=== PATIENT | male | born 1950 | race Caucasian/White ===

== ENCOUNTER 2019-06-16 06:15 | Emergency (ER) | payer MEDICARE, OTHER ==
[~2019-06-16] VITALS: Ht 182.9 cm; Wt 118.2 kg
[2019-06-16] MEDS ORDERED: ketorolac tromethamine 15mg/ml inj. IV ONE (06:35)
[2019-06-16] MEDS ORDERED: normal saline 1000ML IV soln IVB ONE ×2 (06:35→06:55)
[2019-06-16] MEDS ORDERED: morphine 4 MG/ML inj SYRINge IV ONE (06:55)
[2019-06-16] MEDS ORDERED: ondansetron/PF 4mg/2ml inj IV ONE (06:55)
[2019-06-16 07:11] LABS: BASOPHILS # (AUTO) 0.1 X10'3 (0-0.2); BASOPHILS % (AUTO) 0.9 % (0-1); EOSINOPHILS # (AUTO) 0.2 X10'3 (0-0.9); EOSINOPHILS % (AUTO) 1.6 % (0-6); HEMATOCRIT 43.5 % (42.0-52.0); LYMPHOCYTES # (AUTO) 2.1 X10'3 (1.1-4.8); LYMPHOCYTES % (AUTO) 20.6 % (21-51); MEAN CORPUSCULAR HEMOGLOBIN 30.1 PG (27.0-31.0); MEAN CORPUSCULAR HGB CONC 34.5 g/dL (33.0-36.5); MEAN CORPUSCULAR VOLUME 87.2 FL (78-98); MEAN PLATELET VOLUME 8.6 FL (7.4-10.4); MONOCYTES # (AUTO) 0.6 X10'3 (0-0.9); MONOCYTES % (AUTO) 6.3 % (2-12); NEUTROPHILS # (AUTO) 7.1 X10'3 (1.8-7.7); NEUTROPHILS % (AUTO) 70.6 % (42-75); PLATELET COUNT 222 X10'3 (140-440); RED BLOOD COUNT 4.99 X10'6 (4.70-6.10); RED CELL DISTRIBUTION WIDTH 14.1 % (11.5-14.5)
[2019-06-16 07:13] LABS: ALANINE AMINOTRANSFERASE 33 U/L (12-78); ALBUMIN 3.9 G/DL (3.4-5.0); ALBUMIN/GLOBULIN RATIO 1.1 (1.1-1.5); ALKALINE PHOSPHATASE 125 IU/L (46-116); ANION GAP 16 (8-16); ASPARTATE AMINO TRANSFERASE 20 U/L (10-37); BILIRUBIN,TOTAL 0.8 MG/DL (0.1-1.0); BLOOD UREA NITROGEN 24 MG/DL (7-18); BUN/CREATININE RATIO 17.4 (5.4-32.0); CALCIUM 9.2 MG/DL (8.5-10.1); CHLORIDE 108 MMOL/L (99-107); CREATININE 1.38 MG/DL (0.60-1.10); GLUCOSE 197 MG/DL (70-104); LIPASE 195 U/L (73-393); POTASSIUM 4.4 MMOL/L (3.5-5.1); SODIUM 140 MMOL/L (135-145); TOTAL PROTEIN 7.6 G/DL (6.4-8.2); eGFR 51 ML/MIN
--- NOTE | 2019-06-16 08:20 | NUR ---
PATIENT HAS BEEN INFORMED SEVERAL TIMES OF NEED FOR URINALYSIS SPECIMEN. PATIENT STATES HE IS UNABLE TO VOID AT THIS TIME. IV FLUIDS IN PROGRESS AND CUP OF WATER GIVEN TO PATIENT.
[2019-06-16 09:13] LABS: CLARITY,URINE CLEAR (Clear); COLOR,URINE YELLOW (Yellow); GLUCOSE, URINE NEGATIVE (Neg); KETONES,URINE 15 mg/dl (Neg); LEUKOCYTE ESTERASE ,URINE NEGATIVE (Neg); NITRITES, URINE NEGATIVE (Neg); OCCULT BLOOD,URINE MODERATE (Neg); PROTEIN,URINE NEGATIVE (Neg); UROBILINOGEN,URINE 0.2 E.U/dL (0.2-1.0)
[2019-06-16 09:14] LABS: UA COLLECTION TYPE URINAL
[2019-06-16 09:24] LABS: SQUAMOUS EPITHELIAL CELL,UR MODERATE /LPF (FEW)
[2019-06-16 09:26] LABS: RBC,URINE 20-50 /HPF (0-2); URIC ACID CRYSTALS 4+ /HPF (NEGATIVE)
[2019-06-16 09:27] LABS: BACTERIA,URINE FEW /HPF (Neg)
[2019-06-16 09:28] LABS: TRANSITIONAL EPI CELLS,URINE FEW /HPF; WBC,URINE 0-4 /HPF (0-4)
[2019-06-16] MEDS ORDERED: morphine 4 MG/ML inj SYRINge IM ONE (10:40)
[2019-06-16] MEDS ORDERED: tamsulosin 0.4mg capsule PO ONE (10:40)
[2019-06-16] MEDS ORDERED: FLO0.4C PO (10:46)
[2019-06-16] MEDS ORDERED: ONDA8TAB13 PO (10:46)
[2019-06-16] MEDS ORDERED: HYDR-4353 PO (10:46)
--- NOTE | 2019-06-16 11:20 | NUR ---
PATIENT WILL BE DC HOME IN 30 MINUTES, AFTER RECEIVING PAIN MEDICATION. SON, ANGELIA, CALLED ON CELL AT [phone], AND INFORMED THAT HIS FATHER WILL BE DC IN APPROX 30 MINUTES, AND REQUIRE TRANSPORTATION HOME. SON IS ON HIS WAY HERE.
[2019-06-16 12:17] VITALS: BP 156/44
== END 2019-06-16 12:10 | disposition home or self-care (01) ==
LOC: ER 06:17
DX: N20.0 Calculus of kidney (principal); R11.10 Vomiting, unspecified; E11.9 Type 2 diabetes mellitus without complications; Z87.891 Personal history of nicotine dependence; Z79.899 Other long term (current) drug therapy
CPT/HCPCS: 36415; 74176; 80053; 81001; 83690; 85025; 96361; 96372; 96374; 96375; 99284; J1885; J2270; J2405; J7030

== ENCOUNTER 2021-06-11 09:13 | Inpatient (IN) | payer OTHER, MEDICARE ==
[~2021-06-11] VITALS: Ht 182.9 cm; Wt 118.2 kg
[~2021-06-11 09:13] MED LIST: ONDA8TAB13 PO
[2021-06-11 11:18] LABS: BASOPHILS # (AUTO) 0.1 X10'3 (0-0.2); BASOPHILS % (AUTO) 0.9 % (0-1); EOSINOPHILS # (AUTO) 0.2 X10'3 (0-0.9); EOSINOPHILS % (AUTO) 3.3 % (0-6); HEMATOCRIT 43.6 % (42.0-52.0); HEMOGLOBIN 14.7 g/dl (14.0-17.9); LYMPHOCYTES # (AUTO) 1.9 X10'3 (1.1-4.8); LYMPHOCYTES % (AUTO) 27.6 % (21-51); MEAN CORPUSCULAR HEMOGLOBIN 29.7 PG (27.0-31.0); MEAN CORPUSCULAR HGB CONC 33.7 g/dL (33.0-36.5); MEAN PLATELET VOLUME 8.1 FL (7.4-10.4); MONOCYTES # (AUTO) 0.7 X10'3 (0-0.9); MONOCYTES % (AUTO) 10.8 % (2-12); NEUTROPHILS # (AUTO) 3.9 X10'3 (1.8-7.7); NEUTROPHILS % (AUTO) 57.4 % (42-75); PLATELET COUNT 218 X10'3 (140-440); RED BLOOD COUNT 4.96 X10'6 (4.70-6.10); RED CELL DISTRIBUTION WIDTH 14.7 % (11.5-14.5); WHITE BLOOD COUNT 6.7 X10'3 (4.5-11.0)
[2021-06-11 11:28] LABS: ALANINE AMINOTRANSFERASE 28 U/L (12-78); ALBUMIN 3.3 G/DL (3.4-5.0); ALBUMIN/GLOBULIN RATIO 0.8 (1.1-1.5); ALKALINE PHOSPHATASE 113 IU/L (46-116); ANION GAP 10 (8-16); ASPARTATE AMINO TRANSFERASE 16 U/L (10-37); BLOOD UREA NITROGEN 18 MG/DL (7-18); BUN/CREATININE RATIO 16.5 (5.4-32.0); CALCIUM 9.1 MG/DL (8.5-10.1); CHLORIDE 106 MMOL/L (99-107); CREATININE 1.09 MG/DL (0.60-1.10); GLUCOSE 103 MG/DL (70-104); POTASSIUM 4.1 MMOL/L (3.5-5.1); SODIUM 140 MMOL/L (135-145); TOTAL CARBON DIOXIDE 24.3 MMOL/L (24-32); TOTAL PROTEIN 7.6 G/DL (6.4-8.2); eGFR 66 ML/MIN
[2021-06-11 11:39] LABS: MAGNESIUM 2.2 MG/DL (1.5-2.4); TROPONIN I < 0.04 NG/ML (0.0-0.05)
[2021-06-11] MEDS ORDERED: iohexol 350MG/ML 100ml bottle IV ONE (12:23)
[2021-06-11 13:35] LABS: CLARITY,URINE CLEAR (Clear); COLOR,URINE YELLOW (Yellow); GLUCOSE, URINE NEGATIVE (Neg); KETONES,URINE NEGATIVE (Neg); LEUKOCYTE ESTERASE ,URINE NEGATIVE (Neg); NITRITES, URINE NEGATIVE (Neg); OCCULT BLOOD,URINE NEGATIVE (Neg); PROTEIN,URINE NEGATIVE (Neg); UA COLLECTION TYPE URINAL; UROBILINOGEN,URINE 0.2 E.U/dL (0.2-1.0)
[2021-06-11] MEDS ORDERED: CefTRIAXone/D5W-Rocephin 1gm 50 ML IV ONE (13:50)
[2021-06-11] MEDS ORDERED: azithromycin/NS 500mg/250ml 250 ML IV ONE (13:50)
[2021-06-11] MEDS ORDERED: mag hydrox/Alum hydrox/simeth 30ml oral suspension PO PRN (14:05)
[2021-06-11] MEDS ORDERED: ondansetron/PF 4mg/2ml inj IV PRN (14:05)
[2021-06-11] MEDS ORDERED: acetaminophen 325mg tablet PO PRN (14:05)
[2021-06-11] MEDS ORDERED: magnesium hydroxide 30ml (MOM) UD suspension PO PRN (14:05)
[2021-06-11] MEDS ORDERED: VIT1CAPS46 PO (15:46)
[2021-06-11] MEDS ORDERED: DONE10TA7 PO (15:46)
[2021-06-11] MEDS ORDERED: ASPI81TA52 PO (15:46)
[2021-06-11] MEDS ORDERED: LEVO175T2 PO (15:46)
[2021-06-11] MEDS ORDERED: FINA5TAB11 PO (15:46)
[2021-06-11] MEDS ORDERED: PIOG45TA5 PO (15:46)
[2021-06-11] MEDS ORDERED: ALBU8.5H17 IH (15:46)
[2021-06-11] MEDS ORDERED: ATOR40TA71 PO (15:46)
[2021-06-11] MEDS ORDERED: FLO0.4C PO (15:46)
[2021-06-11] MEDS: normal saline 1000ml 1,000 ML IV SCH (17:41)
[2021-06-11] MEDS ORDERED: ALBUTEROL INHALER 1 PUFF/90 MCG INHALER IH PRN (18:25)
[2021-06-11] MEDS: docusate sod 100mg capsule PO SCH (19:50)
[2021-06-11] MEDS: donepezil 5mg tablet PO SCH (19:51)
[2021-06-11] MEDS: tamsulosin 0.4mg capsule PO SCH (19:51)
[2021-06-11] MEDS ORDERED: non-formulary drug (Vit C/E/Zn/Coppr/Lutein/Zeaxan (Preservision Areds 2 Softgel) 1 CAP) PO SCH (20:00)
--- NOTE | 2021-06-11 21:49 | NUR ---
Report given to BASSEM Bradshaw in PCU.
[2021-06-11 22:00] VITALS: BP 122/56
--- NOTE | 2021-06-11 22:05 | NUR ---
Received report from Ritika LUEVANO from ED. Patient came up up floor via gurney. Patient walked to bed with stand by assist. Bed placed in locked and low position. Call light within reach.
[2021-06-12 00:09] LABS: HEMOGLOBIN A1C 7.2 % (4.5-6.2)
[2021-06-12 02:00] VITALS: BP 127/69
[2021-06-12] MEDS: normal saline 1000ml 1,000 ML IV SCH ×3 (04:23→19:50)
[2021-06-12 06:00] VITALS: BP 130/71
--- NOTE | 2021-06-12 06:19 | NUR ---
Problems reprioritized. Patient report given, questions answered & plan of care reviewed with Darcie LUEVANO.
--- NOTE | 2021-06-12 06:23 | NUR ---
Patient in room PCU 3015. I have received report from BASSEM GODINEZ, and had the opportunity to ask questions and assume patient care.
[2021-06-12 06:35] LABS: BASOPHILS # (AUTO) 0.1 X10'3 (0-0.2); BASOPHILS % (AUTO) 0.7 % (0-1); EOSINOPHILS # (AUTO) 0.3 X10'3 (0-0.9); EOSINOPHILS % (AUTO) 4.2 % (0-6); HEMATOCRIT 40.4 % (42.0-52.0); HEMOGLOBIN 13.7 g/dl (14.0-17.9); LYMPHOCYTES # (AUTO) 1.8 X10'3 (1.1-4.8); MEAN CORPUSCULAR HEMOGLOBIN 29.9 PG (27.0-31.0); MEAN CORPUSCULAR HGB CONC 34.1 g/dL (33.0-36.5); MEAN CORPUSCULAR VOLUME 87.8 FL (78-98); MEAN PLATELET VOLUME 8.4 FL (7.4-10.4); MONOCYTES # (AUTO) 0.8 X10'3 (0-0.9); NEUTROPHILS # (AUTO) 3.8 X10'3 (1.8-7.7); NEUTROPHILS % (AUTO) 56.1 % (42-75); PLATELET COUNT 180 X10'3 (140-440); RED BLOOD COUNT 4.59 X10'6 (4.70-6.10); RED CELL DISTRIBUTION WIDTH 14.6 % (11.5-14.5); WHITE BLOOD COUNT 6.7 X10'3 (4.5-11.0)
[2021-06-12 06:49] LABS: ANION GAP 8 (8-16); BLOOD UREA NITROGEN 18 MG/DL (7-18); BUN/CREATININE RATIO 16.8 (5.4-32.0); CALCIUM 8.5 MG/DL (8.5-10.1); CHLORIDE 110 MMOL/L (99-107); CREATININE 1.07 MG/DL (0.60-1.10); GLUCOSE 109 MG/DL (70-104); SODIUM 142 MMOL/L (135-145); TOTAL CARBON DIOXIDE 23.9 MMOL/L (24-32); eGFR 68 ML/MIN
[2021-06-12] MEDS: CefTRIAXone 2gm/D5W 50ml BAG 50 ML IV SCH (07:42)
[2021-06-12] MEDS: aspirin 81mg, enteric-coated 1 TAB TABLET.DR PO SCH (07:44)
[2021-06-12] MEDS: enoxaparin 40mg/0.4ml syringe SUBCUT SCH (07:45)
[2021-06-12] MEDS: azithromycin 250mg tablet PO SCH (07:45)
[2021-06-12] MEDS: atorvastatin 20mg tablet PO SCH (07:46)
[2021-06-12] MEDS: levoTHYROXINE 175mcg tablet PO SCH (07:46)
[2021-06-12] MEDS: pioglitazone 45mg tablet PO SCH (07:46)
[2021-06-12] MEDS: finasteride 5mg tablet PO SCH (07:47)
[2021-06-12] MEDS: docusate sod 100mg capsule PO SCH ×2 (07:47→19:50)
[2021-06-12 11:00] VITALS: BP 132/63
[2021-06-12 15:00] VITALS: BP 134/70
--- NOTE | 2021-06-12 16:37 | NUR ---
DM consult: Pt with T2DM, well controlled with A1c 7.2%. Written DM education with RD contact information placed in patient's chart. Will remain available. Addendum: 06/12/21 at [address] Amended: Links added.
[2021-06-12 18:00] VITALS: BP 127/66
--- NOTE | 2021-06-12 18:09 | NUR ---
Problems reprioritized. Patient report given, questions answered & plan of care reviewed with BASSEM MARTÍNEZ.
[2021-06-12] MEDS: tamsulosin 0.4mg capsule PO SCH (19:50)
[2021-06-12] MEDS: donepezil 5mg tablet PO SCH (19:50)
[2021-06-12 22:00] VITALS: BP 116/68
[2021-06-13] MEDS: normal saline 1000ml 1,000 ML IV SCH ×2 (00:47→18:10)
[2021-06-13 02:00] VITALS: BP 123/63
--- NOTE | 2021-06-13 06:26 | NUR ---
Problems reprioritized. Patient report given, questions answered & plan of care reviewed with Isidra LUEVANO. Addendum: 06/13/21 at 0626 by Cheli Gurrola RN Amended: Links added.
[2021-06-13 06:43] LABS: BASOPHILS % (AUTO) 0.7 % (0-1); EOSINOPHILS # (AUTO) 0.3 X10'3 (0-0.9); EOSINOPHILS % (AUTO) 4.3 % (0-6); HEMATOCRIT 40.3 % (42.0-52.0); HEMOGLOBIN 13.4 g/dl (14.0-17.9); LYMPHOCYTES # (AUTO) 1.9 X10'3 (1.1-4.8); LYMPHOCYTES % (AUTO) 29.2 % (21-51); MEAN CORPUSCULAR HEMOGLOBIN 29.5 PG (27.0-31.0); MEAN CORPUSCULAR HGB CONC 33.2 g/dL (33.0-36.5); MEAN PLATELET VOLUME 8.5 FL (7.4-10.4); MONOCYTES # (AUTO) 0.7 X10'3 (0-0.9); NEUTROPHILS # (AUTO) 3.5 X10'3 (1.8-7.7); NEUTROPHILS % (AUTO) 54.8 % (42-75); PLATELET COUNT 183 X10'3 (140-440); RED BLOOD COUNT 4.53 X10'6 (4.70-6.10); RED CELL DISTRIBUTION WIDTH 14.3 % (11.5-14.5); WHITE BLOOD COUNT 6.4 X10'3 (4.5-11.0)
[2021-06-13 06:48] LABS: ALBUMIN 2.7 G/DL (3.4-5.0); ANION GAP 7 (8-16); BLOOD UREA NITROGEN 16 MG/DL (7-18); BUN/CREATININE RATIO 14.7 (5.4-32.0); CALCIUM 8.3 MG/DL (8.5-10.1); CHLORIDE 110 MMOL/L (99-107); CREATININE 1.09 MG/DL (0.60-1.10); GLUCOSE 115 MG/DL (70-104); POTASSIUM 4.1 MMOL/L (3.5-5.1); SODIUM 143 MMOL/L (135-145); TOTAL CARBON DIOXIDE 25.8 MMOL/L (24-32); eGFR 66 ML/MIN
[2021-06-13 06:52] VITALS: BP 123/63
[2021-06-13] MEDS: levoTHYROXINE 175mcg tablet PO SCH (07:00)
[2021-06-13 07:45] LABS: HIV ANTIBODY 1&2 RAPID NON-REACTIVE (Neg)
[2021-06-13] MEDS: docusate sod 100mg capsule PO SCH ×2 (08:00→21:03)
[2021-06-13] MEDS: CefTRIAXone 2gm/D5W 50ml BAG 50 ML IV SCH (10:19)
[2021-06-13] MEDS: pioglitazone 45mg tablet PO SCH (10:19)
[2021-06-13] MEDS: atorvastatin 20mg tablet PO SCH (10:20)
[2021-06-13] MEDS: aspirin 81mg, enteric-coated 1 TAB TABLET.DR PO SCH (10:20)
[2021-06-13] MEDS: azithromycin 250mg tablet PO SCH (10:21)
[2021-06-13] MEDS: enoxaparin 40mg/0.4ml syringe SUBCUT SCH (10:22)
[2021-06-13] MEDS: finasteride 5mg tablet PO SCH (10:22)
[2021-06-13 11:00] VITALS: BP 139/75
[2021-06-13 15:00] VITALS: BP 115/70
[2021-06-13 18:00] VITALS: BP 134/68
[2021-06-13] MEDS: tamsulosin 0.4mg capsule PO SCH (21:03)
[2021-06-13] MEDS: donepezil 5mg tablet PO SCH (21:03)
[2021-06-13 22:00] VITALS: BP 129/65
[2021-06-14 02:00] VITALS: BP 136/65
[2021-06-14] MEDS: normal saline 1000ml 1,000 ML IV SCH ×2 (02:05→12:05)
[2021-06-14 06:09] LABS: BASOPHILS # (AUTO) 0.1 X10'3 (0-0.2); EOSINOPHILS # (AUTO) 0.2 X10'3 (0-0.9); EOSINOPHILS % (AUTO) 4.2 % (0-6); HEMATOCRIT 40.1 % (42.0-52.0); HEMOGLOBIN 13.4 g/dl (14.0-17.9); LYMPHOCYTES # (AUTO) 1.9 X10'3 (1.1-4.8); LYMPHOCYTES % (AUTO) 32.8 % (21-51); MEAN CORPUSCULAR HEMOGLOBIN 29.5 PG (27.0-31.0); MEAN CORPUSCULAR HGB CONC 33.4 g/dL (33.0-36.5); MEAN CORPUSCULAR VOLUME 88.5 FL (78-98); MEAN PLATELET VOLUME 8.1 FL (7.4-10.4); MONOCYTES # (AUTO) 0.7 X10'3 (0-0.9); MONOCYTES % (AUTO) 11.6 % (2-12); NEUTROPHILS # (AUTO) 2.9 X10'3 (1.8-7.7); NEUTROPHILS % (AUTO) 50.4 % (42-75); PLATELET COUNT 178 X10'3 (140-440); RED BLOOD COUNT 4.53 X10'6 (4.70-6.10); RED CELL DISTRIBUTION WIDTH 14.4 % (11.5-14.5); WHITE BLOOD COUNT 5.8 X10'3 (4.5-11.0)
[2021-06-14 06:39] LABS: ALBUMIN 2.8 G/DL (3.4-5.0); ANION GAP 8 (8-16); BLOOD UREA NITROGEN 17 MG/DL (7-18); BUN/CREATININE RATIO 14.7 (5.4-32.0); CALCIUM 8.3 MG/DL (8.5-10.1); CHLORIDE 109 MMOL/L (99-107); CREATININE 1.16 MG/DL (0.60-1.10); GLUCOSE 119 MG/DL (70-104); POTASSIUM 4.1 MMOL/L (3.5-5.1); SODIUM 142 MMOL/L (135-145); TOTAL CARBON DIOXIDE 24.7 MMOL/L (24-32); eGFR 62 ML/MIN
[2021-06-14 07:00] VITALS: BP 123/63
[2021-06-14] MEDS: docusate sod 100mg capsule PO SCH (09:15)
[2021-06-14] MEDS: aspirin 81mg, enteric-coated 1 TAB TABLET.DR PO SCH (09:15)
[2021-06-14] MEDS: azithromycin 250mg tablet PO SCH (09:15)
[2021-06-14] MEDS: levoTHYROXINE 175mcg tablet PO SCH (09:16)
[2021-06-14] MEDS: atorvastatin 20mg tablet PO SCH (09:16)
[2021-06-14] MEDS: pioglitazone 45mg tablet PO SCH (09:16)
[2021-06-14] MEDS: CefTRIAXone 2gm/D5W 50ml BAG 50 ML IV SCH (09:17)
[2021-06-14] MEDS: finasteride 5mg tablet PO SCH (09:17)
[2021-06-14] MEDS: enoxaparin 40mg/0.4ml syringe SUBCUT SCH (09:18)
[2021-06-14] MEDS ORDERED: BENZ-16 PO (12:08)
[2021-06-14] MEDS ORDERED: LEVO750T46 PO (12:08)
== END 2021-06-14 15:08 | disposition home or self-care (01) | DRG 195 ==
LOC: ER 09:13 → ED HOLD 14:05 → PCU 3S 22:06
PROVIDERS: ADMIT Family Medicine; ATTEND Family Medicine
PROC: B32T1ZZ Computerized Tomography (CT Scan) of Left Pulmonary Artery using Low Osmolar Contrast (ICD-10-PCS; principal; 2021-06-11)
PROC: B3201ZZ Computerized Tomography (CT Scan) of Thoracic Aorta using Low Osmolar Contrast (ICD-10-PCS; 2021-06-11)
PROC: B32S1ZZ Computerized Tomography (CT Scan) of Right Pulmonary Artery using Low Osmolar Contrast (ICD-10-PCS; 2021-06-11)
DX: J18.1 Lobar pneumonia, unspecified organism (principal); E11.9 Type 2 diabetes mellitus without complications; E03.9 Hypothyroidism, unspecified; E78.5 Hyperlipidemia, unspecified; N40.0 Benign prostatic hyperplasia without lower urinary tract symptoms; Z87.442 Personal history of urinary calculi
CPT/HCPCS: 36415; 71045; 71275; 80048; 80053; 81003; 82948; 83036; 83605; 83735; 83880; 84145; 84443; 84484; 85025; 86703; 87040; 87070; 87081; 93005; 99285; G0378; J0456; J0696; J1650; J7030; Q9967